=== PATIENT | female | born 1985 | race Two or more races ===

== ENCOUNTER 2019-09-18 11:20 | Outpatient (CLI) | payer OTHER | END 2019-09-18 11:38 | disposition home or self-care (01) | LOC: RX STUDY 11:20 | DX: N70.11 Chronic salpingitis (principal) ==

== ENCOUNTER 2021-06-14 18:49 | Emergency (ER) | payer OTHER ==
[~2021-06-14] VITALS: Ht 154.9 cm; Wt 77.6 kg
[2021-06-14] MEDS ORDERED: SYNTHROID75 MCG PO (19:13)
[2021-06-14] MEDS ORDERED: ZITHROMAX200 MG PO (22:07)
[2021-06-14] MEDS ORDERED: TUSSIN100 MG/5 M PO (22:07)
[2021-06-14] MEDS ORDERED: CORTISPORIN EAR10 M1 OPHT (22:08)
== END 2021-06-14 22:11 | disposition home or self-care (01) ==
LOC: ER 18:49
DX: J06.9 Acute upper respiratory infection, unspecified (principal); Z03.818 Encounter for observation for suspected exposure to other biological agents ruled out

== ENCOUNTER 2021-06-26 14:54 | Outpatient (CLI) | payer OTHER ==
[~2021-06-26 14:54] MED LIST: CORTISPORIN EAR10 M1 OPHT; SYNTHROID75 MCG PO; TUSSIN100 MG/5 M PO; ZITHROMAX200 MG PO
== END 2021-06-26 15:30 | disposition home or self-care (01) ==
LOC: NST 14:54
PROVIDERS: ATTEND Obstetrics & Gynecology Maternal & Fetal Medicine
DX: Z34.83 Encounter for supervision of other normal pregnancy, third trimester (principal)

== ENCOUNTER 2021-06-29 02:53 | Inpatient (IN) | payer OTHER ==
[~2021-06-29] VITALS: Ht 154.9 cm; Wt 4.1 kg
[2021-06-29] MEDS ORDERED: PRENATAL TABLE1 EAC1 PO (04:12)
[2021-06-29] MEDS ORDERED: SYNTHROID75 MCG PO (04:13)
[2021-06-29] MEDS ORDERED: INTEGRA CAPSUL1 EACH PO (04:13)
== END 2021-07-02 14:34 | disposition home or self-care (01) | DRG 788 ==
LOC: LDR 02:53 → SURG-SUITE 02:53 → O/R 02:53 → LDR 07:25 → O/R 13:41 → LDR 13:43 → O/R 14:09 → SURG-SUITE 17:19
PROVIDERS: Obstetrics & Gynecology; ADMIT Obstetrics & Gynecology Maternal & Fetal Medicine; ATTEND Obstetrics & Gynecology Maternal & Fetal Medicine
PROC: 4A1HXFZ Monitoring of Products of Conception, Cardiac Rhythm, External Approach (ICD-10-PCS; 2021-06-29)
PROC: 10D00Z1 Extraction of Products of Conception, Low, Open Approach (ICD-10-PCS; principal; 2021-06-29 18:45)
DX: O62.1 Secondary uterine inertia (principal); O42.02 Full-term premature rupture of membranes, onset of labor within 24 hours of rupture; O99.284 Endocrine, nutritional and metabolic diseases complicating childbirth; E03.9 Hypothyroidism, unspecified; Z37.0 Single live birth; Z3A.37 37 weeks gestation of pregnancy

== ENCOUNTER 2025-01-18 06:05 | Day surgery (SDC) | payer OTHER ==
[2025-01-15 13:57] VITALS: BP 112/72
[~2025-01-18] VITALS: Ht 154.9 cm; Wt 70.3 kg
[~2025-01-18 06:05] MED LIST changes: +INTEGRA CAPSUL1 EACH PO; +PRENATAL TABLE1 EAC1 PO
[2025-01-18] MEDS ORDERED: POVIDONE-IODINE SCRUB 118 ML BOTT TOP ONE ×2 (07:09→13:18)
[2025-01-18] MEDS ORDERED: EPINEPHRINE HCL/PF 1 MG/ML AMPUL ONE ×2 (07:09→14:09)
[2025-01-18] MEDS ORDERED: POVIDONE-IODINE 118 ML BOTT TOP ONE ×2 (07:09→13:18)
[2025-01-18] MEDS ORDERED: GENTAMICIN SULFATE 40 MG/ML VIAL ONE ×2 (07:09→14:09)
[2025-01-18] MEDS ORDERED: CHLORHEXIDINE GLUCONATE 120 ML BOTTLE TOP ONE (07:10)
[2025-01-18] MEDS ORDERED: CEFAZOLIN SODIUM 1,000 MG VIAL ONE ×2 (07:10→13:19)
[2025-01-18] MEDS ORDERED: CLINDAMYCIN PHOSPHATE 150 MG/ML (900mg) ONE (09:31)
[2025-01-18] MEDS ORDERED: LIDOCAINE HCL 1%/EPINEPHRINE 20ML VIAL IJ ONE (13:18)
[2025-01-18] MEDS ORDERED: BUPIVACAINE HCL/MPF 0.5% 30ML VIAL ONE (13:18)
[2025-01-18] MEDS ORDERED: TRANEXAMIC ACID 100MG/1ML (1000MG) AMPUL IV ONE ×2 (14:09→20:45)
[2025-01-18] MEDS ORDERED: NITROGLYCERIN 1 INCH OINT..GM. TD ONE (18:58)
[2025-01-18] MEDS ORDERED: SUGAMMADEX SODIUM 200 MG/2 ML VIAL IV ONE (19:48)
[2025-01-18] MEDS ORDERED: MORPHINE SULFATE 4 MG/ML VIAL IV ONE (20:40)
== END 2025-01-18 23:40 | disposition home or self-care (01) ==
LOC: CIR.AMB 06:05
PROVIDERS: ATTEND Surgery
DX: D05.11 Intraductal carcinoma in situ of right breast (principal); R59.0 Localized enlarged lymph nodes; N60.81 Other benign mammary dysplasias of right breast; N65.1 Disproportion of reconstructed breast; Z91.040 Latex allergy status